=== PATIENT | female | born 1960 | race African-American/Black ===

== ENCOUNTER 2016-07-23 14:04 | Emergency (ER) | payer MEDICAID ==
[~2016-07-23] VITALS: Ht 162.6 cm; Wt 71.0 kg
[2016-07-23] MEDS ORDERED: IBUPROFEN 600MG TABLET PO ONE (15:45)
[2016-07-23 17:00] VITALS: BP 122/80
== END 2016-07-23 17:50 | disposition home or self-care (01) ==
LOC: ER 16:32
DX: R05 Cough (principal)
CPT/HCPCS: 71010; 99283